=== PATIENT | female | born 1975 | race Caucasian/White ===

== ENCOUNTER 2019-08-10 12:48 | Emergency (ER) | payer BC ==
[2019-08-10 16:56] LABS: Influenza A Molecular Negative (Negative); Influenza B Molecular Negative (Negative)
[2019-08-10 16:58] VITALS: BP 104/72
--- NOTE | 2019-08-10 17:36 | ED ---
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 Patient has had flulike symptoms with body aches, fever chills without cough or sore throat. Symptoms are not getting worse and getting better in the last couple of days. - History of Current Complaint Chief Complaint: UCRespiratory Time Seen by Provider: 08/10/19 14:25 Hx Obtained From: Patient Onset/Duration: Started Days Ago Timing: Lasting Hours Initial Severity: Moderate Current Severity: Moderate Pain Intensity: 0 - Allergy/Home Medications Allergies/Adverse Reactions: Allergies Allergy/AdvReac Type Severity Reaction Status Date / Time Penicillins Allergy Unknown Verified 08/10/19 16:46 Reaction Details Home Medications: Home Medications NK [No Home Medications Reported] 08/10/19 [History Confirmed 08/10/19] PMH/Surg Hx/FS Hx/Imm Hx Previously Healthy: Yes - Cancer History Hx Chemotherapy: No Hx Radiation Therapy: No Infectious Disease History: No Infectious Disease History: Denies: Traveled Outside the [place] in Last 30 Days - Social History Alcohol Use: None Substance Use Type: Reports: None Smoking Status (MU): Never Smoked Tobacco Review of Systems Positive: Fever, Chills, Fatigue Eyes: Negative ENT: Negative Cardiovascular: Negative Respiratory: Negative Gastrointestinal: Negative Genitourinary: Negative Positive: Myalgia Skin: Negative Neurological/Mental Status: Negative Positive: Headache Psychological: Normal All Other Systems Reviewed And Are Negative: Yes Physical Exam - Summary Physical Exam Summary: Vital Signs Reviewed: Yes Gen: NAD Eye Exam: Normal Eyes: Positive: Conjunctiva Clear ENT: Normal ENT inspection Neck: Supple Respiratory: Lungs clear, Normal breath sounds. Negative: Crackles, Rhonchi, Stridor, Wheezing Cardiovascular Exam: Normal, RRR, S1, S2 Abdomen: NT/ND Musculoskeletal Exam: Normal Neurological Exam: Normal Psychological Exam: Normal Skin Exam: Normal Vital Signs On Initial Exam: Initial Vitals Temp Pulse Resp BP Pulse Ox 37.6 C 78 18 104/72 100 08/10/19 16:47 08/10/19 16:47 08/10/19 16:47 08/10/19 16:47 08/10/19 16:47 Diagnostics - Vital Signs Vital Signs Temp Pulse Resp BP Pulse Ox 08/10/19 16:47 37.6 C 78 18 104/72 100 - Laboratory Lab Results: Lab Results 08/10/19 08/10/19 Range/Units 16:45 16:57 Influenza A (Rapid) Negative (Negative) Influenza B (Rapid) Negative (Negative) Group A Strep Rapid Negative (Negative) Lab Statement: Any lab studies that have been ordered have been reviewed, and results considered in the medical decision making process. Course/Dx - Course Assessment/Plan: Rapid flu and strep negative. Will send for acute viral respiratory panel PCR as well as for COVID 19 testing for suspected recent exposure to coronary virus patient is patient is a health care provider. - Diagnoses Provider Diagnoses: Acute viral syndrome, Myalgia Discharge ED - Sign-Out/Discharge Documenting (check all that apply): Patient Departure All imaging exams completed and their final reports reviewed: No Studies - Discharge Plan Condition: Stable Disposition: HOME Patient Education Materials: Viral Syndrome (ED) Referrals: Cyndee Adam MD [Primary Care Provider] - - Billing Disposition and Condition Condition: STABLE Disposition: Home
== END 2019-08-10 17:45 | disposition home or self-care (01) ==
LOC: UCEAST 12:48
DX: B34.9 Viral infection, unspecified (principal); M79.10 Myalgia, unspecified site; R53.83 Other fatigue; Z88.0 Allergy status to penicillin
CPT/HCPCS: 87651; 99211; G0463